=== PATIENT | female | born 1955 | race Caucasian/White ===

== ENCOUNTER → 2017-07-29 | Outpatient (CLI) | payer BC, OTHER ==
[~2017-07-29] MED LIST: ATOR20TA15 PO; CALC1TAB87 PO; CELE1CAP8 PO; LISI10TA3 PO; METF500T4 PO
== END ==
LOC: CPRE 08:53
PROVIDERS: ATTEND Orthopaedic Surgery
DX: M16.12 Unilateral primary osteoarthritis, left hip (principal)

== ENCOUNTER 2017-08-14 05:13 | Inpatient (IN) | payer BC, OTHER ==
[~2017-08-14] VITALS: Ht 172.7 cm; Wt 76.3 kg
[2017-08-14] MEDS ORDERED: ceFAZolin 2 GM PREMIX 50 ML IV SCH (05:45)
[2017-08-14] MEDS ORDERED: POVIDONE IODINE 7.5% SCRUB 118 ML BOTTLE TOPICAL SCH (05:45)
[2017-08-14] MEDS ORDERED: SODIUM CHLORID 0.9% 500 ML IV PRN (05:45)
[2017-08-14] MEDS ORDERED: CHLORHEXIDINE GLUCONATE 2 % 1 PACK (2 CLOTHS) TOPICAL PRN (05:45)
[2017-08-14] MEDS ORDERED: VANCOMYCIN 1000 MG/NS 250 ML (for <70 kg) IV SCH ×2 (05:45)
[2017-08-14] MEDS ORDERED: POVIDONE IODINE 5% (ANTISEPSIS KIT) 4 APPLICATIONS EACH NARE PRN (05:45)
[2017-08-14] MEDS ORDERED: DEXAMETHASONE SOD PHOS 20 MG/5 ML VIAL IV PUSH SCH (05:45)
[2017-08-14] MEDS ORDERED: METOPROLOL TARTRATE 25 MG TAB PO PRN (05:45)
[2017-08-14] MEDS ORDERED: LACTATED RINGER'S 1000 ML IV PRN (05:45)
[2017-08-14] MEDS ORDERED: EXPAREL PERI-ARTICULAR INJECTION (TOTAL VOL. 60 ML) P-ARTICULR SCH ×2 (05:45)
[2017-08-14] MEDS ORDERED: TRANEXAMIC ACID INJ 705 MG in SODIUM CHLORIDE 0.9% INJ 100 ML IV SCH ×2 (05:45→10:00)
[2017-08-14] MEDS ORDERED: GENTAMICIN SULFATE 80 MG/2 ML VIAL ONE (06:06)
[2017-08-14] MEDS ORDERED: FAMOTIDINE 20 MG/2 ML VIAL ONE (06:36)
[2017-08-14] MEDS ORDERED: ACETAMINOPHEN 1000 MG/100 ML 100 ML IV ONE (06:36)
--- NOTE | 2017-08-14 06:50 | HHI.DCPOC ---
Discharge Care Plan Diagnosis: (1) Osteoarthritis of left hip (2) Status post total hip replacement, left Your Health Problems Are: Difficulty with ADL Goals to Promote Your Health * To prevent worsening of your condition and complications * To maintain your health at the optimal level Directions to Meet Your Goals Take your medications as prescribed Follow your dietary instruction Follow activity as directed Keep your appointments as scheduled Take your immunizations and boosters as scheduled If your symptoms worsen call your PCP, if no PCP go to Urgent Care Center or Emergency Room Smoking is Dangerous to Your Health. Avoid second hand smoke Call the 24-hour hour crisis hotline for domestic abuse at Cristofer Gray Aug 14, 2017 06:50
--- NOTE | 2017-08-14 06:51 | HHI.FF ---
Face to Face Verification Diagnosis: (1) Osteoarthritis of left hip (2) Status post total hip replacement, left Physical Therapy Gait training, Transfer training, bed to chair Left LE Weight Bearing: WB as tolerated Left LE Range of Motion: Active ROM Nursing Nursing: Jethro hatch Dressing Changes: Do not change dressing Additional Instructions First dressing change in office I have seen patient Nalini Ornelas on 08/14/17. My clinical findings support the need for the requested home health care services because: Limited ability to care for self High risk of falls I certify that my clinical findings support that this patient is homebound because: Post-op weakness Unsteady gait/balance Cristofer Gray Aug 14, 2017 06:51
[2017-08-14] MEDS ORDERED: COMMODE 3-IN-11 MIS (06:52)
[2017-08-14] MEDS ORDERED: WALKER WHEELS/F1 MIS (06:52)
--- NOTE | 2017-08-14 08:20 | PD.OP ---
cc: Yao Arias MD Operative Report Date of Surgery: Aug 14, 2017 Preoperative Diagnosis: Left hip severe osteoarthritis Postoperative Diagnosis: Same Procedure: Left total hip arthroplasty Anesthesia: Gen. Surgeon: Yao Arias Candy Depositing Machine Operator(s): EID Donato The surgical procedure was assisted by my Advanced Registered Nurse Practitioner. My PUBLIC HEALTH MICROBIOLOGIST presence was necessary throughout this case for the manipulation and positioning of the surgical extremity. My PUBLIC HEALTH MICROBIOLOGIST was assisting me throughout the duration of this procedure. The skill set of an Advance Registered Nurse Practitioner was medically necessary to complete this procedure. During the surgical case, the certified surgical first assistant was working at the back table and the Advance Registered Nurse Practitioner was directly assisting me. Operation and Findings: IMPLANT DESCRIPTION: 1. [place] Gription Cup, acetabular size 50. 2. [place] AltrX polyethylene, neutral. 4. [place] femoral stem size 12, no collar, standard offset. 5. Femoral head/neck ceramic, 32, +1. ESTIMATED BLOOD LOSS: 150 cc. JUSTIFICATION FOR PROCEDURE: The patient has end-stage osteoarthritis to the hip. There is an attached conservative measures pathway form in the chart that describes the nonoperative measures that were undertaken prior to consideration of surgical management. The patient understood the risks and benefits of surgical management. See my office notes for further details. PROCEDURE: The patient was brought back to the operative theatre. Adequate anesthesia was obtained. The patient received intravenous vancomycin and Ancef. The patient was carefully placed on the operative table. The lower extremity was prepped and draped in the usual sterile fashion. Fluoroscopic images were obtained. We made a standard anterior incision over the hip. We dissected through the TFL fascia, exposing the anterior capsule. Arthrotomy was performed in a T-shaped fashion. The capsule was tagged with a #2 FiberWire. End-stage arthritis was identified. Osteotomy was performed through the femoral neck exposing the acetabulum. Remnants of the labrum were resected and osteophytes were removed. We sequentially reamed the acetabulum. We trialed the hip and placed the final cup into position. This was done under fluoroscopic guidance to obtain the appropriate inclination and anteversion. A manhole cover was placed into the acetabular component. We then placed the final polyethylene into position and confirmed that it was well seated. Capsular attachments on the calcar and the inner aspect of the greater trochanter were resected. On the proximal aspect of the femur we used a rongeur , box osteotome, canal finder, sequential broaches and lateralizing rasp. We calcar planed the proximal femur. Then thoroughly irrigated the wound. We trialed the hip with the appropriate size stem. We placed the final stem in to position and trialed again. The hip was stable while it was externally rotated 70 degrees when the leg was lowered to the floor. The final head was applied, and final fluoroscopic images were obtained. The wound was thoroughly irrigated again. Interarticular injection of liposomal bupivacaine was given. The capsule was closed with #2 FiberWire and #1 Vicryl. The deep fascia was closed with a #2 Stratafix, followed by 2-0 Vicryl in the skin and Dermabond dressing. Postop plan is to weight-bear as tolerated. DVT prophylaxis will be performed with Dinesh, BASSAM pozo, early mobilization, and Lovenox followed by aspirin. Yao Arias MD Aug 14, 2017 08:20
[2017-08-14] MEDS ORDERED: ENOX40IN SQ (08:21)
[2017-08-14] MEDS ORDERED: ASPI-146 PO (08:21)
[2017-08-14] MEDS ORDERED: NORC5TAB PO (08:21)
[2017-08-14] MEDS ORDERED: BISACODYL 10 MG SUPP RECTAL PRN (08:30)
[2017-08-14] MEDS ORDERED: MAGNESIUM HYDROXIDE SUSP 30 ML CUP PO PRN (08:30)
[2017-08-14] MEDS ORDERED: *MEPERIDINE 25 MG INJ VIAL PERIprocedural Use ONLY ONE (08:54)
[2017-08-14] MEDS ORDERED: SODIUM CHLORIDE 0.9% FLUSH 5 ML FLUSH IVF PRN (09:00)
[2017-08-14] MEDS ORDERED: ONDANSETRON HCL 4 MG/2 ML VIAL IVP PRN (09:00)
[2017-08-14] MEDS ORDERED: Post-op Orders (for Pharmacy) MISC XX ONE (09:00)
[2017-08-14] MEDS ORDERED: MORPHINE SULFATE 4 MG/ML INJ IV PUSH PRN (09:00)
[2017-08-14] MEDS ORDERED: ALUMINUM/MAGNESIUM/SIMETH 30 ML CUP PO PRN (09:00)
[2017-08-14] MEDS ORDERED: NALOXONE HCL 0.4 MG/ML AMP IV PUSH PRN (09:00)
[2017-08-14] MEDS ORDERED: diphenhydrAMINE HCL 50 MG/ML VIAL IV PUSH PRN (09:00)
[2017-08-14] MEDS: SODIUM CHLOR 0.9% 1000 ML INJ 1,000 ML IV SCH (09:02)
[2017-08-14] MEDS: SODIUM CHLORIDE 0.9% FLUSH 5 ML FLUSH IVF SCH ×2 (09:02→20:19)
--- NOTE | 2017-08-14 09:16 | RADRPT ---
EXAM DATE/TIME: 08/14/2017 07:03 [facility] COMPARISON: No previous studies available for comparison. INDICATIONS : Left hip anterior hip replacement done in operating room. MEDICAL HISTORY : None. SURGICAL HISTORY : None. ENCOUNTER: Initial ACUITY: 1 day PAIN SCORE: Non-responsive. LOCATION: Left hip. FINDINGS: A two view examination of the left hip was performed. There is a left total hip arthroplasty in good position. No complication is noted. CONCLUSION: Status post left total hip arthroplasty. Himanshu Dyer MD on August 14, 2017 at 9:14 Board Certified Radiologist. This report was verified electronically.
--- NOTE | 2017-08-14 09:33 | RADRPT ---
EXAM DATE/TIME: 08/14/2017 08:45 [facility] COMPARISON: No previous studies available for comparison. INDICATIONS : Post-op total left hip replcement. MEDICAL HISTORY : None. SURGICAL HISTORY : Left hip replacement. ENCOUNTER: Subsequent ACUITY: 1 day PAIN SCORE: Non-responsive. LOCATION: Left hip FINDINGS: Examination of the hip demonstrates total hip arthroplasty in satisfactory position. The alignment is anatomic. CONCLUSION: Post surgical changes as above. Fredy Porter MD on August 14, 2017 at 9:31 Board Certified Radiologist. This report was verified electronically.
[2017-08-14] MEDS ORDERED: DO NOT ADM ANY ANTICOAGULANT DRUGS PRN (09:45)
[2017-08-14] MEDS ORDERED: *morphine SULFATE 8 MG/ML PERIprocedure ONLY ONE (10:42)
[2017-08-14 13:01] VITALS: BP 131/76; PULSE 106; RESP 16; TEMP 99.1; O2SAT 99
--- NOTE | 2017-08-14 14:19 | PD.CONS ---
HPI Service [facility] Consult Requested By Dr. Arias Reason for Consult Medical management Primary Care Physician No Primary Care Physician Diagnoses: History of Present Illness The patient is a 62-year-old female with a past medical history of diabetes and hypertension who is presenting to the hospital for an elective left hip replacement. The patient says that she has been having severe left hip pain for the past 10 years. She initially noticed decreased range of motion and has gradually experienced increasing pain in the joint. She says that she has been compensating with her knee and her back while ambulating. She says she did try using a cane for a while but that didn't help. She has been able to go up and down stairs one at a time. She has worked with physical therapy and that did not seem to help much. She has had steroid injections which worked initially but subsequentl doses did not improve her symptoms. She has been taking Celebrex for pain control which has been helpful. She tolerated the surgery well and currently complains of aches in the left lower extremity. The patient says she had chest pain earlier this year and had a stress test which was negative. She thinks it was secondary to stress. The patient has been having regular bowel movements. She has no acute concerns at this point. Review of Systems Except as stated in HPI: all other systems reviewed are Neg Past Family Social History Allergies: Coded Allergies: No Known Allergies (Unverified , 08/14/17) Past Medical History Diabetes Hypertension Hyperlipidemia Past Surgical History Right foot granuloma removal 2 Arthroscopic surgery on the knee Active Ordered Medications Current Medications Medications (Trade) Dose Ordered Sig/Miguel Angel Route Start Time Stop Time Status Last Admin Lactated Ringer's 1,000 ml @ 30 mls/hr Q24H PRN IV 08/14/17 05:45 08/17/17 05:44 08/14/17 05:50 Sodium Chloride 500 ml @ 30 mls/hr [id number] PRN IV 08/14/17 05:45 08/17/17 05:44 (Lopressor) 25 mg RADIO ADJUSTER PRN PO 08/14/17 05:45 08/17/17 05:44 (Betadine 5% Antisepsis Kit) 1 applic RADIO ADJUSTER PRN EACH NARE 08/14/17 05:45 08/17/17 05:44 08/14/17 06:01 (Chlorhexidine 2% Cloth) 3 pack RADIO ADJUSTER PRN TOPICAL 08/14/17 05:45 08/17/17 05:44 08/14/17 05:30 (Betadine 7.5% Scrub) 1 applic ONCE TOPICAL 08/14/17 05:45 08/17/17 05:44 Cefazolin Sodium/ Dextrose 50 ml @ 100 mls/hr RADIO ADJUSTER IV 08/14/17 05:45 08/17/17 05:44 08/14/17 06:00 Vancomycin HCl 1000 mg/Sodium Chloride 250 ml @ 250 mls/hr RADIO ADJUSTER IV 08/14/17 05:45 08/17/17 05:44 08/14/17 06:04 Tranexamic Acid 705 mg/Sodium Chloride 107.05 ml @ 200 mls/ hr ONCE IV 08/14/17 05:45 08/14/17 21:00 08/14/17 07:01 Bupivacaine Liposome 20 ml/ Sodium Chloride 60 ml @ 120 mls/hr ONCE P-ARTICULR 08/14/17 05:45 08/15/17 05:44 08/14/17 08:04 (Decadron Inj) 10 mg ONCE IV PUSH 08/14/17 05:45 08/14/17 21:00 08/14/17 06:00 (Lipitor) 20 mg HS PO 08/14/17 21:00 (Prinivil) 10 mg HS PO 08/14/17 21:00 (Glucophage) 500 mg HS PO 08/14/17 21:00 Sodium Chloride 1,000 ml @ 100 mls/hr Q10H IV 08/14/17 09:00 08/14/17 09:02 (NS Flush) 2 ml UNSCH PRN IVF 08/14/17 09:00 (NS Flush) 2 ml BID IVF 08/14/17 09:00 08/14/17 09:02 Cefazolin Sodium 1000 mg/Sodium Chloride 100 ml @ 200 mls/hr Q6H IV 08/14/17 12:00 08/15/17 00:29 08/14/17 11:38 (Decadron Inj) 10 mg ONCE ONCE IV 08/15/17 09:00 08/15/17 09:01 (Lovenox Inj) 40 mg Q24H SQ 08/15/17 08:00 08/24/17 08:01 ([place] 5-325 Mg) 1 tab Q4H PRN PO 08/14/17 09:00 ([place] 5-325 Mg) 2 tab Q4H PRN PO 08/14/17 09:00 Tranexamic Acid 705 mg/Sodium Chloride 107.05 ml @ 200 mls/ hr UNSCH X1 IV 08/14/17 10:00 08/14/17 16:00 08/14/17 11:17 (Theragran M Tab) 1 tab BID PO 08/15/17 21:00 10/14/17 20:59 (Zofran Inj) 4 mg Q6H PRN IVP 08/14/17 09:00 (Colace) 100 mg BID PO 08/15/17 21:00 (Mag-Al Plus Susp Liq) 30 ml Q6H PRN PO 08/14/17 09:00 (Ambien) 5 mg HS PRN PO 08/14/17 21:00 (Dulcolax Supp) 10 mg DAILY PRN RECTAL 08/14/17 08:30 (Milk Of Magnesia Liq) 30 ml DAILY PRN PO 08/14/17 08:30 (Narcan Inj) 0.4 mg UNSCH PRN IV PUSH 08/14/17 09:00 (Benadryl Inj) 25 mg Q6H PRN IV PUSH 08/14/17 09:00 (Morphine Inj) 2 mg Q3H PRN IV PUSH 08/14/17 09:00 Miscellaneous Information ALL NURSING DEPARTME... UNSCH PRN .XX 08/14/17 09:45 08/15/17 09:44 Family History Diabetes CAD Social History The patient does not smoke. She drinks 1-2 glasses of wine daily. 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 Physical Exam Vital Signs Vital Signs Date Time Temp Pulse Resp B/P (MAP) Pulse Ox O2 Delivery O2 Flow Rate FiO2 08/14/17 12:45 99.3 95 16 117/64 (81) 97 Nasal Cannula 2 08/14/17 12:00 76 12 101/59 (73) 96 Nasal Cannula 2 08/14/17 11:00 76 13 115/63 (80) 96 Nasal Cannula 2 08/14/17 10:30 72 19 122/68 (86) 98 Nasal Cannula 2 08/14/17 10:00 67 15 123/61 (81) 98 Nasal Cannula 2 08/14/17 09:30 59 20 116/65 (82) 97 Nasal Cannula 2 08/14/17 09:15 60 19 121/64 (83) 98 Nasal Cannula 2 08/14/17 09:00 64 18 118/59 (78) 92 Nasal Cannula 2 08/14/17 08:45 66 17 111/58 (75) 95 Nasal Cannula 2 08/14/17 08:37 98.5 98 15 118/78 (91) 97 Simple Mask 6 08/14/17 05:53 98.8 85 20 136/92 (107) 98 Physical Exam GENERAL: This is a well-nourished, well-developed patient, in no apparent distress. SKIN: No rashes, ecchymoses or lesions. Cool and dry. HEAD: Atraumatic. Normocephalic. No temporal or scalp tenderness. EYES: Pupils equal round and reactive. Extraocular motions intact. No scleral icterus. No injection or drainage. ENT: Nose without bleeding, purulent drainage or septal hematoma. Throat without erythema, tonsillar hypertrophy or exudate. Uvula midline. Airway patent. NECK: Trachea midline. No JVD or lymphadenopathy. Supple, nontender, no meningeal signs. CARDIOVASCULAR: Regular rate and rhythm without murmurs, gallops, or rubs. RESPIRATORY: Clear to auscultation. Breath sounds equal bilaterally. No wheezes , rales, or rhonchi. GASTROINTESTINAL: Abdomen soft, non-tender, nondistended. No hepato-splenomegaly , or palpable masses. No guarding. MUSCULOSKELETAL: Left leg with bandage in place. Positive pedal pulses. NEUROLOGICAL: Awake and alert. Cranial nerves II through XII intact. Motor and sensory grossly within normal limits. Five out of 5 muscle strength in all muscle groups. Normal speech. PSYCH: Mood and affect appropriate. Imaging Last Impressions Hip and Pelvis X-Ray 08/14/17 0817 Signed Impressions: Service Date/Time: Monday, August 14, 2017 08:45 - CONCLUSION: Post surgical changes as above. Fredy Porter MD Hip X-Ray 08/14/17 0000 Signed Impressions: Service Date/Time: Monday, August 14, 2017 07:03 - CONCLUSION: Status post left total hip arthroplasty. Himanshu Dyer MD Assessment and Plan Assessment and Plan Severe osteoarthritis Status post left hip replacement 08/14/17. - Wound care, weightbearing and anticoagulation per orthopedic surgery. - Pain control with a bowel regimen. - Incentive spirometry. - Physical/ occupational therapy. Diabetes Diet controlled. - The patient will resume her metformin upon discharge. Hypertension Well-controlled at this time. - Continue home medications. PPx: Lovenox Discussed Condition With Pt Raimundo Nuñez DO Aug 14, 2017 14:19
[2017-08-14 16:00] VITALS: BP 123/69; PULSE 104; RESP 16; TEMP 99.1; O2SAT 97
--- NOTE | 2017-08-14 17:10 | PD.ORT.PN ---
Objective Vitals Vital Signs Date Time Temp Pulse Resp B/P (MAP) Pulse Ox O2 Delivery O2 Flow Rate FiO2 08/14/17 12:45 99.3 95 16 117/64 (81) 97 Nasal Cannula 2 08/14/17 12:00 76 12 101/59 (73) 96 Nasal Cannula 2 08/14/17 11:00 76 13 115/63 (80) 96 Nasal Cannula 2 08/14/17 10:30 72 19 122/68 (86) 98 Nasal Cannula 2 08/14/17 10:00 67 15 123/61 (81) 98 Nasal Cannula 2 08/14/17 09:30 59 20 116/65 (82) 97 Nasal Cannula 2 08/14/17 09:15 60 19 121/64 (83) 98 Nasal Cannula 2 08/14/17 09:00 64 18 118/59 (78) 92 Nasal Cannula 2 08/14/17 08:45 66 17 111/58 (75) 95 Nasal Cannula 2 08/14/17 08:37 98.5 98 15 118/78 (91) 97 Simple Mask 6 08/14/17 05:53 98.8 85 20 136/92 (107) 98 I/O 08/13/17 08/13/17 08/13/17 08/14/17 08/14/17 08/14/17 06:59 14:59 22:59 06:59 14:59 22:59 Intake Total 2115 ml Output Total 150 ml Balance 1965 ml Intake IV Total 615 ml Other 1500 ml Output Estimated Blood Loss 150 ml Imaging Last 24 hours Impressions Hip and Pelvis X-Ray 08/14/17 0817 Signed Impressions: Service Date/Time: Monday, August 14, 2017 08:45 - CONCLUSION: Post surgical changes as above. Fredy Poretr MD Hip X-Ray 08/14/17 0000 Signed Impressions: Service Date/Time: Monday, August 14, 2017 07:03 - CONCLUSION: Status post left total hip arthroplasty. Himanshu Dyer MD Assessment & Plan Assessment and Plan POD #0: Left AGA 1. WBAT LLE 2. Lovenox followed by ASA for DVT prophylaxis 3. Ice to the left hip PRN 4. No dressing changes. First dressing change will be in the office. 5. Plan is for discharge home with home health on Thursday 6. Patient will f/u with Dr. Arias or EDI Garcia as previously scheduled. Cristofer Gray Aug 14, 2017 17:10
[2017-08-14] MEDS: ACETAMINOPHEN/HYDROcodone 325 MG/5 MG TAB PO PRN ×2 (18:15→22:42)
[2017-08-14 20:25] VITALS: BP 122/69; PULSE 97; RESP 17; TEMP 99.6; O2SAT 96
[2017-08-14] MEDS ORDERED: ZOLPIDEM TARTRATE 5 MG TAB PO PRN (21:00)
[2017-08-14] MEDS ORDERED: metFORMIN HCL 500 MG TAB PO SCH (21:00)
[2017-08-14] MEDS ORDERED: ATORVASTATIN 20 MG TAB PO SCH (21:00)
[2017-08-14] MEDS ORDERED: LISINOPRIL 10 MG TAB PO SCH (21:00)
[2017-08-15 00:42] VITALS: BP 126/72; PULSE 85; RESP 17; TEMP 99.9; O2SAT 96
[2017-08-15] MEDS: ACETAMINOPHEN/HYDROcodone 325 MG/5 MG TAB PO PRN ×3 (03:25→12:53)
[2017-08-15 04:41] VITALS: BP 125/69; PULSE 88; RESP 17; TEMP 99.9; O2SAT 95
[2017-08-15] MEDS: SODIUM CHLOR 0.9% 1000 ML INJ 1,000 ML IV SCH ×2 (05:00→14:11)
[2017-08-15 06:12] LABS: HEMATOCRIT 30.9 % (35.0-46.0); MEAN CELL VOLUME 89.3 FL (80.0-100.0); MEAN CORPUSCULAR HEMOGLOBIN 31.8 PG (27.0-34.0); MEAN CORPUSCULAR HGB CONC 35.6 % (32.0-36.0); PLATELET COUNT 172 TH/MM3 (150-450); RED BLOOD COUNT 3.46 MIL/MM3 (4.00-5.30); RED CELL DISTRIBUTION WIDTH 11.8 % (11.6-17.2); REVIEW FLAG FINAL; WHITE BLOOD COUNT 8.1 TH/MM3 (4.0-11.0)
[2017-08-15 06:43] LABS: BICARBONATE 24.7 MEQ/L (21.0-32.0); POTASSIUM 3.8 MEQ/L (3.5-5.1)
[2017-08-15 07:20] VITALS: BP 120/78; PULSE 93; RESP 16; TEMP 99; O2SAT 96
[2017-08-15] MEDS ORDERED: ENOXAPARIN SODIUM 40 MG/0.4 ML SYRINGE SQ SCH (08:00)
[2017-08-15] MEDS: SODIUM CHLORIDE 0.9% FLUSH 5 ML FLUSH IVF SCH (08:12)
[2017-08-15] MEDS ORDERED: DEXAMETHASONE SOD PHOS 20 MG/5 ML VIAL IV ONE (09:00)
[2017-08-15 09:31] VITALS: O2SAT 94
--- NOTE | 2017-08-15 10:20 | PD.ORT.PN ---
Subjective Subjective Remarks no CP/SOB. no issues. Participating in PT Objective Vitals Vital Signs Date Time Temp Pulse Resp B/P (MAP) Pulse Ox O2 Delivery O2 Flow Rate FiO2 08/15/17 04:41 99.9 88 17 125/69 (87) 95 08/15/17 00:42 99.9 85 17 126/72 (90) 96 08/14/17 20:25 99.6 97 17 122/69 (86) 96 08/14/17 16:00 99.1 104 16 123/69 (87) 97 08/14/17 13:01 99.1 106 16 131/76 (94) 99 08/14/17 12:45 99.3 95 16 117/64 (81) 97 Nasal Cannula 2 08/14/17 12:00 76 12 101/59 (73) 96 Nasal Cannula 2 08/14/17 11:00 76 13 115/63 (80) 96 Nasal Cannula 2 08/14/17 10:30 72 19 122/68 (86) 98 Nasal Cannula 2 I/O 08/14/17 08/14/17 08/14/17 08/15/17 08/15/17 08/15/17 07:00 15:00 23:00 07:00 15:00 23:00 Intake Total 2595 ml 240 ml 360 ml Output Total 150 ml Balance 2445 ml 240 ml 360 ml Intake Oral 480 ml 240 ml 360 ml IV Total 615 ml Other 1500 ml Output Estimated Blood Loss 150 ml # Voids 1 1 2 # Bowel Movements 0 0 0 Result Diagram: 08/15/17 0540 08/15/17 0540 Imaging Last 24 hours Impressions Hip and Pelvis X-Ray 08/14/17 0817 Signed Impressions: Service Date/Time: Monday, August 14, 2017 08:45 - CONCLUSION: Post surgical changes as above. Fredy Porter MD Hip X-Ray 08/14/17 0000 Signed Impressions: Service Date/Time: Monday, August 14, 2017 07:03 - CONCLUSION: Status post left total hip arthroplasty. Himanshu Dyer MD Objective Remarks aaox3, nad. LLE nvi. dressing CDI. SILT distally. neg homans, soft compartments. Assessment & Plan Assessment and Plan POD #1: Left AGA 1. WBAT LLE 2. Lovenox followed by ASA for DVT prophylaxis 3. Ice to the left hip PRN 4. No dressing changes. First dressing change will be in the office. 5. Plan is for discharge home with home health on Today 6. Patient will f/u with Dr. Arias or EDI Garcia as previously scheduled. Seb Medina Jr., MD Aug 15, 2017 10:20
[2017-08-15 12:00] VITALS: BP 136/76; PULSE 96; RESP 16; TEMP 96.4; O2SAT 100
[2017-08-15] MEDS ORDERED: MULTIVITAMINS/MINERALS THERAPEUTIC TAB PO SCH (21:00)
[2017-08-15] MEDS ORDERED: DOCUSATE SODIUM 100 MG CAP PO SCH (21:00)
--- NOTE | 2017-08-18 15:12 | HHI.DS ---
Discharge Summary Admission Date Aug 14, 2017 at 05:13 Discharge Date: Aug 15, 2017 Admitting Diagnosis OA left hip Status post total hip replacement, left Diagnosis: (1) Osteoarthritis of left hip Diagnosis: Principal ICD Codes: M16.12 - Unilateral primary osteoarthritis, left hip (2) Status post total hip replacement, left Diagnosis: Principal ICD Codes: Z96.642 - Presence of left artificial hip joint Procedures left AGA Brief History This is a 62 year old female patient with severe OA of the left hip CBC/BMP: 08/15/17 0540 08/15/17 0540 PE at Discharge aaox3, nad. LLE nvi. dressing CDI. SILT distally. neg homans, soft compartments. Hospital Course The patient was admitted to the hospital for severe OA of the left hip to have a left AGA. The patient's surgery went well without complication. The patient is WBAT on the left LE. The patient was placed on Lovenox followed by ASA for DVT prophylaxis. The patient is on a diabetic diet. The patient was discharged home with home health and will f/u in the office with Dr. Arias or EDI Garcia as previously scheduled. Pt Condition on Discharge: Stable Discharge Disposition: Disch w/ Home Health Serv Discharge Instructions Diet Instructions: As Tolerated, No Restrictions, Diabetic Diet Activities You Can Perform: Weight Bearing as Jian Activities to Avoid: Strenuous Activity Follow up Referrals: Orthopedics with Yao Arias MD New Medications: Aspirin DR (Ecotrin Regular Strength) 325 Mg Tabdr 325 MG PO DAILY for Prevent Blood Clot, #30 TAB 0 Refills Start Aspirin after Lovenox is completed. Commode 3-in-1 (Commode 3-in-1) 1 Mis Mis EA .ROUTE DIRECTED, #1 0 Refills Enoxaparin Inj (Enoxaparin Inj) 40 Mg/0.4 Ml Syr 40 MG SQ DAILY for Blood Clot Prevention, #10 SYRINGE 0 Refills Start Aspirin after Lovenox is completed. Hydrocodone-Acetaminophen ([place]) 5 Mg-325 Mg Tab 1-2 TAB PO Q4H PRN for PAIN, #60 TAB 0 Refills Walker with Front Wheels (Walker with Front Wheels) 1 Mis Mis EA .ROUTE DIRECTED, #1 0 Refills Continued Medications: Atorvastatin (Atorvastatin) 20 Mg Tab 20 MG PO HS for Cholesterol Management, #30 TAB 0 Refills Calcium Carbonate-Cholecalciferol (Calcium 600 with Vitamin D) 600-400 mg-Unit Tab 1 TAB PO HS for Calcium Supplement, TAB 0 Refills Lisinopril (Lisinopril) 10 Mg Tab 10 MG PO HS, #30 TAB 0 Refills Metformin ER (Metformin ER) 500 Mg Isa 500 MG PO HS for Blood Sugar Management, TAB 0 Refills With evening meal Discontinued Medications: Celecoxib (Celecoxib) 200 Mg Cap 200 MG PO HS for Pain Management, CAP 0 Refills Cristofer Gray Aug 18, 2017 15:12
== END 2017-08-15 15:05 | disposition home health service (06) | DRG 470 ==
LOC: HSDI 05:13 → EDUNIT# 07:00 → N06A 13:06
PROVIDERS: ADMIT Orthopaedic Surgery; ATTEND Orthopaedic Surgery
PROC: 0SRB04A Replacement of Left Hip Joint with Ceramic on Polyethylene Synthetic Substitute, Uncemented, Open Approach (ICD-10-PCS; principal; 2017-08-14 06:39)
DX: M16.12 Unilateral primary osteoarthritis, left hip (principal); I10 Essential (primary) hypertension; E11.9 Type 2 diabetes mellitus without complications; K21.9 Gastro-esophageal reflux disease without esophagitis; E78.5 Hyperlipidemia, unspecified; Z79.84 Long term (current) use of oral hypoglycemic drugs
CPT/HCPCS: 73502; 76000; 80048; 85027; 86850; 86900; 86901; 94150; C1776; C9290; J0131; J0690; J1100; J1580; J1650; J2175; J2270; J3370; J7030; J7050; J7120